=== PATIENT | female | born 1935 | race Two or more races ===

== ENCOUNTER → 2021-07-28 08:00 | Outpatient (CLI) | payer OTHER | END | disposition home or self-care (01) | LOC: PPH VACUNA 08:00 | PROVIDERS: ATTEND Emergency Medicine Pediatric Emergency Medicine | DX: Z23 Encounter for immunization (principal) ==

== ENCOUNTER 2023-03-29 15:52 | Emergency (ER) | payer OTHER ==
[~2023-03-29] VITALS: Ht 152.4 cm; Wt 83.5 kg
[2023-03-29] MEDS ORDERED: METOPROLOL TART50 MG PO (16:24)
[2023-03-29] MEDS ORDERED: LOSARTAN POTASS50 MG PO (16:24)
[2023-03-29] MEDS ORDERED: MONTELUKAST SOD10 MG PO (16:25)
[2023-03-29] MEDS ORDERED: NORVASC5 MG PO (16:25)
[2023-03-29] MEDS ORDERED: GABAPENTIN400 MG PO (16:25)
[2023-03-29] MEDS ORDERED: GLIPIZIDE XL10 MG PO (16:26)
== END 2023-03-29 18:09 | disposition home or self-care (01) ==
LOC: ER 15:52
DX: M25.59 Pain in other specified joint (principal)

== ENCOUNTER 2023-05-24 20:16 | Emergency (ER) | payer OTHER ==
[~2023-05-24] VITALS: Ht 154.9 cm; Wt 80.3 kg
[~2023-05-24 20:16] MED LIST: GABAPENTIN400 MG PO; GLIPIZIDE XL10 MG PO; LOSARTAN POTASS50 MG PO; METOPROLOL TART50 MG PO; MONTELUKAST SOD10 MG PO; NORVASC5 MG PO
[2023-05-24] MEDS ORDERED: SINGULAIR4 MG PO (20:43)
[2023-05-24] MEDS ORDERED: LIPITOR40 M1 PO (20:43)
[2023-05-24] MEDS ORDERED: CHILDREN'S ASPI81 MG (20:44)
[2023-05-24] MEDS ORDERED: CATAFLAN (20:44)
[2023-05-24] MEDS ORDERED: NEURONTIN300 MG PO (20:44)
[2023-05-24] MEDS ORDERED: CORTISPORIN EAR10 M1 OTIC (21:33)
== END 2023-05-24 21:39 | disposition home or self-care (01) ==
LOC: ER 20:16
DX: S01.311A Laceration without foreign body of right ear, initial encounter (principal); E11.9 Type 2 diabetes mellitus without complications; Z79.84 Long term (current) use of oral hypoglycemic drugs; I10 Essential (primary) hypertension

== ENCOUNTER 2025-01-12 23:35 | Emergency (ER) | payer OTHER ==
[~2025-01-12] VITALS: Ht 154.9 cm; Wt 77.6 kg
[~2025-01-12 23:35] MED LIST changes: +CATAFLAN; +CHILDREN'S ASPI81 MG; +CORTISPORIN EAR10 M1 OTIC; +LIPITOR40 M1 PO; +NEURONTIN300 MG PO; +SINGULAIR4 MG PO
[2025-01-13] MEDS ORDERED: FAMOTIDINE/PF 20 MG/2 ML VIAL IV PUSH STA (02:05)
[2025-01-13] MEDS ORDERED: DIPHENHYDRAMINE HCL 50 MG/ML VIAL 1ML IV STA (02:05)
[2025-01-13] MEDS ORDERED: DIPHENHYDRAMINE HCL 50 MG/ML VIAL 1ML ONE (02:08)
[2025-01-13] MEDS ORDERED: FAMOTIDINE/PF 20 MG/2 ML VIAL ONE (02:09)
[2025-01-13 03:10] LABS: HEMATOCRIT 38.4 % (36.0-45.00); HEMOGLOBIN 12.2 g/dL (12.0-15.00); MEAN CORPUSCULAR HEMOGLOBIN 20.9 pg (27.00-32.0); MEAN CORPUSCULAR HGB CONC 31.7 g/dl (32.0-36.0); PLATELET COUNT 207 K/uL (150-450); RED BLOOD COUNT 5.82 M/uL (4.00-6.00)
[2025-01-13 03:11] LABS: MEAN CELL VOLUME 66.1 fL (80.00-100.00)
[2025-01-13] MEDS ORDERED: BETAMETHASONE D15 G2 TOP (03:28)
[2025-01-13] MEDS ORDERED: ALLEGRA ALLERG180 MG PO ×2 (03:28→03:29)
== END 2025-01-13 03:48 ==
LOC: ER 23:36
PROVIDERS: General Practice
DX: R21 Rash and other nonspecific skin eruption (principal); I10 Essential (primary) hypertension; E11.9 Type 2 diabetes mellitus without complications